=== PATIENT | female | born 1975 | race Caucasian/White ===

== ENCOUNTER 2016-09-13 07:30 | Day surgery (SDC) | payer BC ==
--- NOTE | 2016-09-15 08:09 | OR ---
ADMIT: 09/13/2016 RM/LOC: [facility] MR#: [id number] [address] [address] [place], [place] [address] Operative/Delivery Room Report SEX: F AGE: 41 : 1975 SURGERY DATE: 09/13/2016 SURGEON: Brittanie Carrero MD LITHOGRAPHIC STRIPPER: None. PREPROCEDURE DIAGNOSES: 1. Cervical spondylosis. 2. Cervicalgia. 3. Chronic daily headache. POSTPROCEDURE DIAGNOSES: 1. Cervical spondylosis. 2. Cervicalgia. 3. Chronic daily headache. PROCEDURE PERFORMED: Right cervical medial branch RFA (radiofrequency ablation) of the C2, C3, C4, and C5 levels. INDICATIONS FOR PROCEDURE: ANESTHESIA: Local without sedation. ESTIMATED BLOOD LOSS: Zero. COMPLICATIONS: None immediately evident. DESCRIPTION OF PROCEDURE: After the patient was seen in the preoperative area, vitals signs were taken. Prior to the procedure, the risks, benefits, and alternative therapies were discussed at length. Patient consent was obtained and updated. The patient was taken to the fluoroscopy suite and placed on the fluoroscopy table in the prone position. Pressure points were padded to comfort, monitors applied, and a timeout performed. The patient's jaw turned to the left side. The patient's cervical area was then prepped and draped sterilely using ChloraPrep. C-arm fluoroscopy was then brought in to identify the C2-C3 junction, C3 waist, C4 waist, and C5 waist on ADMIT: 09/13/2016 RM/LOC: [facility] MR#: [id number] [id number] [address] [place] [address] Operative/Delivery Room Report SEX: F AGE: 41 : 1975 the right side. A 22-gauge 3.5-inch curved-tip spinal needle was then advanced through the anesthetize skin and made contact with C2-C3 junction, waist of C3, C4, and C5 on the right side. Once we obtained appropriate parameters for sensory motor testing, we proceeded with radiofrequency coagulation at each level, which consisted of 80 degrees for 90 seconds at each level. The patient tolerated the procedure well and had no complications. The patient was taken to the PACU where she recovered nicely. PLAN: Discharge instructions were given, followup scheduled. The patient was discharged home with a inventory associate and driver. Brittanie Carrero MD/ dixon JOB #: [id number] CC: Brittanie Carrero, Attending Physician Satish Abernathy, Family Physician
== END 2016-09-13 09:20 | disposition home or self-care (01) ==
LOC: SSS 07:30
DX: G89.29 Other chronic pain (principal); M47.812 Spondylosis without myelopathy or radiculopathy, cervical region; Z79.899 Other long term (current) drug therapy; Z88.0 Allergy status to penicillin

== ENCOUNTER 2016-09-28 09:56 | Day surgery (SDC) | payer BC ==
[~2016-09-28] VITALS: Ht 172.7 cm
--- NOTE | 2016-09-29 08:02 | OR ---
ADMIT: 09/28/2016 RM/LOC: [facility] MR#: [id number] [address] [address] [facility] [place] [address] Operative/Delivery Room Report SEX: F AGE: 41 : 1975 SURGERY DATE: 09/28/2016 SURGEON: Brittanie Carrero MD [employer] RADIO TECHNICIAN: None. PREPROCEDURE DIAGNOSES: 1. Cervical spondylosis. 2. Cervicalgia. POSTPROCEDURE DIAGNOSES: 1. Cervical spondylosis. 2. Cervicalgia. PROCEDURE PERFORMED: Left cervical medial branch RFA (radiofrequency ablation) of the C2, C3, C4, and C5 levels. INDICATIONS FOR PROCEDURE: The patient is a pleasant female with history of chronic neck pain, secondary to above mentioned diagnoses, comes here for planned cervical C2, C3, C4, and C5 radiofrequency thermocoagulation. ANESTHESIA: Local without sedation. ESTIMATED BLOOD LOSS: Zero. COMPLICATIONS: None immediately evident. DESCRIPTION OF PROCEDURE: After the patient was seen in the preoperative area, vitals signs were taken. Prior to the procedure, the risks, benefits, and alternative therapies were discussed at length. Patient consent was obtained and updated. The patient was taken to the fluoroscopy suite and placed on the fluoroscopy table in the prone position. Pressure points were padded to comfort, monitors applied, and a timeout performed. The patient's jaw turned to the right side. The patient's cervical area was then prepped and draped sterilely using ChloraPrep. C-arm fluoroscopy was then brought in to identify the C2, C3, C4, and C5 vertebrae. A 22-gauge 3.5-inch ADMIT: 09/28/2016 RM/LOC: [facility] MR#: [id number] [address] [address] JOS[address] [facility] [facility] [place] [address] Operative/Delivery Room Report SEX: F AGE: 41 : 1975 curved-tip spinal needle was then advanced through the anesthetize skin and made contact with C2-C3 junction, C3 waist, C4 waist, and C5 waist on the left side. Once we obtained appropriate parameters for sensory motor testing, we proceeded with radiofrequency coagulation at each level, which consisted of 80 degrees for 90 seconds at each level. The patient tolerated the procedure well and had no complications. The patient was taken to the PACU where she recovered nicely. PLAN: Discharge instructions were given, followup scheduled. The patient was discharged home with a class a regional truck driver. Brittanie Carrero MD/ dixon JOB #: [id number] CC: Brittanie Carrero, Attending Physician Satish Abernathy, Family Physician
== END 2016-09-28 11:30 | disposition home or self-care (01) ==
LOC: SSS 09:56
PROC: BR14ZZZ Fluoroscopy of Cervical Facet Joint(s) (ICD-10-PCS; principal; 2016-09-28)
PROC: 3E0T3TZ Introduction of Destructive Agent into Peripheral Nerves and Plexi, Percutaneous Approach (ICD-10-PCS; principal; 2016-09-28)
DX: G89.4 Chronic pain syndrome (principal); M47.812 Spondylosis without myelopathy or radiculopathy, cervical region; Z88.0 Allergy status to penicillin; Z79.899 Other long term (current) drug therapy; Z90.710 Acquired absence of both cervix and uterus; Z87.891 Personal history of nicotine dependence; Z98.890 Other specified postprocedural states